=== PATIENT | female | born 1960 | race Caucasian/White ===

== ENCOUNTER → 2021-01-03 | Outpatient (CLI) | payer OTHER ==
[2021-01-03 10:41] LABS: ALBUMIN 4.3 g/dL (3.4-4.8); POTASSIUM 4.9 mmol/L (3.5-5.1)
[2021-01-03 10:42] LABS: CALCIUM 9.2 mg/dL (8.3-10.5)
[2021-01-03 10:44] LABS: TOTAL PROTEIN 6.9 g/dL (6.2-8.1)
[2021-01-03 10:45] LABS: TOTAL BILIRUBIN 0.4 mg/dL (0.2-1.2)
[2021-01-03 22:28] LABS: BASO # 0.03 (0.02-0.10); EOS # 0.24 (0.04-0.40); EOS % 2.9 % (1.0-5.0); HEMATOCRIT 43.3 % (37.0-47.0); HEMOGLOBIN 14.6 g/dL (12.5-16.0); LYMPH# 2.74 (1.50-4.00); MEAN CELL VOLUME 96 fl (78-100); MEAN CORPUSCULAR HEMOGLOBIN 32 pg (27-31); MEAN CORPUSCULAR HGB CONC 34 g/dL (33-37); MEAN PLATELET VOLUME 9.4 fl (7.4-10.4); MONO # 0.47 (0.20-0.80); PLATELET COUNT 369 K/mm3 (130-400); RED CELL DISTRIBUTION WIDTH 13.1 % (11.5-14.5); WHITE BLOOD COUNT 8.2 K/mm3 (4.8-10.8)
== END ==
LOC: MAMMO 09:52 → LAB 09:52 → MAMMO 10:00
PROVIDERS: Physician Assistant
DX: Z12.31 Encounter for screening mammogram for malignant neoplasm of breast (principal); Z00.00 Encounter for general adult medical examination without abnormal findings; Z13.29 Encounter for screening for other suspected endocrine disorder; I10 Essential (primary) hypertension; E78.5 Hyperlipidemia, unspecified